=== PATIENT | female | born 2000 | race Caucasian/White ===

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

== ENCOUNTER 2019-04-12 11:21 | Emergency (ER) | payer MEDICAID ==
[~2019-04-12] VITALS: Ht 172.7 cm; Wt 78.2 kg
[2019-04-12 11:30] VITALS: Ht 172.7 cm; Wt 78.2 kg
[2019-04-12] MEDS ORDERED: IBUPROFEN800 MG PO (12:55)
[2019-04-12 13:23] VITALS: BP 126/72
== END 2019-04-12 13:24 | disposition home or self-care (01) ==
LOC: D.ER 11:21
DX: S81.812A Laceration without foreign body, left lower leg, initial encounter (principal); X99.1XXA Assault by knife, initial encounter; Y93.89 Activity, other specified; Y92.019 Unspecified place in single-family (private) house as the place of occurrence of the external cause; T22.111A Burn of first degree of right forearm, initial encounter

== ENCOUNTER 2019-04-29 15:04 | Emergency (ER) | payer MEDICAID ==
[~2019-04-29] VITALS: Ht 172.7 cm; Wt 77.3 kg
[~2019-04-29 15:04] MED LIST changes: +IBUPROFEN800 MG PO
[2019-04-29 15:08] VITALS: BP 120/70; Ht 172.7 cm; Wt 77.3 kg
== END 2019-04-29 19:03 | disposition home or self-care (01) ==
LOC: D.ER 15:04
DX: Z48.00 Encounter for change or removal of nonsurgical wound dressing (principal)